=== PATIENT | female | born 1960 | race Caucasian/White ===

== ENCOUNTER 2019-04-01 13:12 | Outpatient (CLI) | payer OTHER, SELFPAY ==
--- NOTE | ~2019-04-01 | CT_ITS ---
EXAMINATION: CT thoracic spine wo con EXAM DATE: 04/01/2019 14:55 INDICATION: Left-sided upper back pain. TECHNIQUE: Spiral CT thoracic spine wo con was performed without contrast. Axial, coronal and sagit adrianna images were reviewed. The dose-length product (DLP) for this examination was 437.35 mGy-cm. The exposure was tailored according to patient size (auto mA exposure control), and iterative reconstruc tion (ASIR) was used as additional dose reduction technique. There is no prior study for comparison. FINDINGS: Mild mid and lower thoracic disc disease. The vertebral body heights are maintained. The ve rtebral bodies are aligned in the AP dimension. No evidence of thoracic central canal or significant neural foraminal stenosis. There are no acute fractures identified. There are no bony erosions identi fied. Mild thoracic facet arthropathy. Paraspinal soft tissue is unremarkable. Evaluation of portions of the lungs demonstrates nonconfluent left lower lobe airspace in tree-in-bud distribution disease consistent with developing pneumonia. IMPRESSION: 1. Probable developing left basilar pneumonia. 2. Mild thoracic spondylosis. I left a message for ZAC Murray NP at 04/04/2019 09:14 MECHANICAL DESIGN ENGINE[employer] . I provided my direct number for call back to discuss findings in this case. Reviewed, dictated and finalized at location B. ANICAL DESIGN ENGINE[employer] IMPRESSION: 1. Probable developing left basilar pneumonia. 2. Mild thoracic spondylosis. I left a message for ZAC Murray NP at 04/04/2019 09:14 MECHANICAL DESIGN ENGINE[employer] . I prov ided my direct number for call back to discuss findings in this case.
== END 2019-04-01 13:13 | disposition home or self-care (01) ==
PROVIDERS: PCP Internal Medicine; Visit Provider Nurse Practitioner
DX: M54.6 Pain in thoracic spine (principal); M47.814 Spondylosis without myelopathy or radiculopathy, thoracic region
CPT/HCPCS: 72128

== ENCOUNTER 2019-12-21 12:33 | Outpatient (CLI) | payer OTHER, SELFPAY ==
--- NOTE | ~2019-12-21 | MM_ITS ---
EXAMINATION: MM screening [facility] BI w sandi HISTORY: Screening mammogram, history of left breast cancer TECHNIQUE: Craniocaudal and mediolateral oblique 3-D tomosynthesis images were obtained and synthetic 2-D images were generated. CAD analysis was submitted and interpreted. COMPARISON: 07/26/2018, 06/30/2017, 06/23/2016, 06/20/2015 BREAST PARENCHYMAL COMPOSITION: The breasts are heterogeneously dense, which may obscure small masses . FINDINGS: There are stable lumpectomy changes in the lower outer quadrant of the left breast. There i s no evidence of suspicious mass, calcification, or architectural distortion to suggest malignancy in either breast. There has been no suspicious interval change. IMPRESSION: 1. No mammographic evidence of malignancy. 2. Recommend routine screening mammography in one year. BI-RADS Category 2: Benign finding(s). Reviewed, dictated and finalized at location A.
== END 2019-12-21 12:34 | disposition home or self-care (01) ==
LOC: ANHIMG 12:35
PROVIDERS: PCP Internal Medicine; Visit Provider Internal Medicine Medical Oncology
DX: Z12.31 Encounter for screening mammogram for malignant neoplasm of breast (principal)
CPT/HCPCS: 77063; 77067

== ENCOUNTER → 2020-12-24 09:25 | Outpatient (CLI) | payer OTHER, SELFPAY ==
--- NOTE | ~2020-12-24 | MMUS_ITS ---
EXAMINATION: MM diagnostic [facility] BI w sandi, US breast LT limited HISTORY: Palpable left breast abnormality. History of left breast cancer. TECHNIQUE: Additional 3-D tomosynthesis images of the breasts were performed and synthetic 2-D images were generated. CAD analysis was submitted and interpreted. High resolution Limited left breast ultr asound was performed. COMPARISON: Comparison to multiple prior studies sequentially, with oldest reviewed study dated 06/16. BREAST PARENCHYMAL COMPOSITION: The breasts are heterogenously dense, which may obscure small masses. FINDINGS: MAMMOGRAPHIC FINDINGS: The right breast is stable without evidence for malignancy. There are stable architectural distortion in the lower outer quadrant of the left breast with surgical clips. There is a new focal mass in the upper aspect of the left breast overlying the pectoralis muscle corresponding to the palpable findin g. This mass measures 7 mm by mammography. ULTRASOUND: Limited left breast ultrasound: In the axilla in the area palpable concern there is an oval hypoechoi c mass with heterogeneous internal echotexture measuring 8 x 9 x 6 mm. There is posterior acoustic en hancement. No internal vascularity. IMPRESSION: 1. New left breast mass in the axilla corresponding to the mammographic finding measuring 9 mm maximu m dimension. 2. Recommend ultrasound-guided biopsy of breast cancer. This mass has a atypical appearance for lymph node. BI-RADS category 4, suspicious findings. Reviewed, dictated and finalized at location A. IMPRESSION: 1. New left breast mass in the axilla corresponding to the mammographic finding measuring 9 mm maximum dimension. 2. Recommend ultrasound-guided biopsy of breast cancer. This mass has a atypica l appearance for lymph node. BI-RADS category 4, suspicious findings.
== END ==
PROVIDERS: PCP Internal Medicine; Visit Provider Internal Medicine Medical Oncology
DX: C50.512 Malignant neoplasm of lower-outer quadrant of left female breast (principal); Z17.1 Estrogen receptor negative status [ER-]; R92.8 Other abnormal and inconclusive findings on diagnostic imaging of breast
CPT/HCPCS: 76642; 77062; 77066; G0279

== ENCOUNTER 2021-01-01 10:27 | Outpatient (CLI) | payer OTHER, SELFPAY ==
--- NOTE | ~2021-01-01 | US_ITS ---
EXAMINATION: US GUIDED NEEDLE BIOPSY DATE: 01/01/2021 12:23 COLLAR FOLDER OPERATOR INDICATION: New axillary 7 mm mass TECHNIQUE AND FINDINGS: The risks and potential benefits of the procedure were discussed with the patient, and written inform ed consent was obtained. Timeout procedure was performed. After sterile preparation of the left axill a, 1% lidocaine was utilized for local anesthesia. A 18-gauge super core biopsy needle was advanced to the edge of the region of interest from a lateral approach utilizing sonographic guidance. A total of three fine-needle tissue samples were obtained through the lesion. Hemostasis was achieved. A sterile bandage was applied. The patient tolerated procedure well and there was no evidence of immediate complication. The patien t was given verbal instructions prior to departing from the department. The tissue samples were submi tted to surgical pathology for histologic analysis. IMPRESSION: 1. Ultrasound guided biopsy of left axillary mass 2. If diagnostic tissue is not obtained and definitive pathological diagnosis is not possible from th e submitted tissue, consider surgical biopsy, as the lesion is visible at the skin surface and easily palpated. Reviewed, dictated and finalized at Location A. Reviewed, dictated and finalized at location A. AR FOLDER OPERATOR IMPRESSION: 1. Ultrasound guided biopsy of left axillary mass 2. If diagnostic tissue is not obtained and definitive pathological diagnosis i s not possible from the submitted tissue, consider surgical biopsy, as the lesi on is visible at the skin surface and easily palpated.
== END 2021-01-01 10:28 | disposition home or self-care (01) ==
LOC: ANHIMG 10:32
PROVIDERS: PCP Internal Medicine; Visit Provider Internal Medicine Medical Oncology
DX: C50.512 Malignant neoplasm of lower-outer quadrant of left female breast (principal); Z17.1 Estrogen receptor negative status [ER-]; R22.32 Localized swelling, mass and lump, left upper limb; L72.0 Epidermal cyst
CPT/HCPCS: 19083; 88304; 88305

== ENCOUNTER 2022-08-27 07:16 | Outpatient (CLI) | payer OTHER, SELFPAY ==
--- NOTE | ~2022-08-27 | MM_ITS ---
EXAMINATION: MM screening [facility] w sandi HISTORY: Screening mammogram, history of left breast cancer TECHNIQUE: Craniocaudal and mediolateral oblique 3-D tomosynthesis images were obtained and synthetic 2-D images were generated. CAD analysis was submitted and interpreted. COMPARISON: 12/24/2020, 12/21/2019, 07/26/2018, 06/30/2017 BREAST PARENCHYMAL COMPOSITION: The breasts are heterogeneously dense, which may obscure small masses . FINDINGS: Lumpectomy changes are noted in the left breast. No suspicious mass, calcification, or arch itectural distortion are identified in either breast to suggest malignancy. There has been no suspici ous interval change. IMPRESSION: 1. No mammographic evidence of malignancy. 2. Recommend routine screening mammography in one year. BI-RADS Category 2: Benign finding(s). Reviewed, dictated and finalized at location A.
== END 2022-08-27 07:17 | disposition home or self-care (01) ==
LOC: ANHIMG 07:19
PROVIDERS: PCP Internal Medicine; Visit Provider Internal Medicine
DX: Z12.31 Encounter for screening mammogram for malignant neoplasm of breast (principal)
CPT/HCPCS: 77063; 77067

== ENCOUNTER 2023-12-24 15:49 | Outpatient (CLI) | payer OTHER, SELFPAY ==
--- NOTE | ~2023-12-24 | MM_ITS ---
EXAMINATION: MM screening [facility] w sandi HISTORY: Screening mammogram TECHNIQUE: Craniocaudal and mediolateral oblique 3-D tomosynthesis images were obtained and synthetic 2-D images were generated. CAD analysis was submitted and interpreted. COMPARISON: 08/27/2022, 12/24/2020, 12/21/2019 BREAST PARENCHYMAL COMPOSITION:Dense: The breasts are heterogeneously dense, which may obscure small masses. FINDINGS: Stable postoperative distortion at the outer, posterior left breast. Questionable small sub tle low-density developing mass at the outer right subareolar region. No suspicious microcalcificatio n arrest. IMPRESSION: Possible small developing low-density right outer subareolar breast mass. Spot compression views and possible ultrasound are recommended for further evaluation. BI-RADS Category 0: Incomplete: Needs additional imaging evaluation. Reviewed, dictated and finalized at [facility]. IMPRESSION: Possible small developing low-density right outer subareolar breast mass. Spot compression views and possible ultrasound are recommended for further evaluati on. BI-RADS Category 0: Incomplete: Needs additional imaging evaluation.
== END 2023-12-24 15:50 | disposition home or self-care (01) ==
LOC: ANHIMG 15:50
PROVIDERS: PCP Internal Medicine; Visit Provider Internal Medicine
DX: Z12.31 Encounter for screening mammogram for malignant neoplasm of breast (principal)
CPT/HCPCS: 77063; 77067

== ENCOUNTER 2024-08-05 09:28 | Outpatient (CLI) | payer OTHER, SELFPAY ==
--- OUTSIDE RECORDS SUMMARY | 2024-08-05 09:35 | XMS_ITS | Clinical Summary ---
Author Organization [facility] Address [address] [place] [address] Phone Care Team Providers Care Striker Off Name Role Phone YolandaEmil guzmán Randy Primary Care Provider Allergies No known active allergies Medications Milk Thistle 175 mg Tablet Take by mouth. A ctive OTHER Nutrafol hair supplement Active Active Problems Problem Noted Date Diagnosed Date History of external beam radiation therapy 01/27 Carcinoma of breast upper outer quadrant, left 0 07/15/2017 Estrogen receptor negative 07/15/2017 Abnormal mammogram 07/15/2017 History of antineoplastic chemotherapy 8 Encounters Date Type Department Care Team Description 07/13/2024 External Device Data ST[facility] ABSTRACTION Provider, Abstract 07/12/2024 External Device Data [facility] ABSTRACTION Provider, Abstract from Last 3 Months Family History Medical History Relation Name Comments Healthy Brother Cancer Father Hypertension Father Healthy Mother Healthy Sister 1 Healthy Sister 2 Relation Name Status Comments Brother Alive Father Mother Alive Sister 1 Alive Sister 2 Alive Social History Tobacco Use Types Packs/Day Years Used Date Smoking Tobacco: Former Cigarettes Smokeless Tobacco: Never Tobacco Cessation:Counseling Given: Not Answered Alcohol Use Standard Drinks/Week Comments Yes 0 (1 standard drink = 0.6 oz pur e alcohol) Feeling Safe Answer Date Recorded Do you worry about feeling s afe and happy with the people in your life? No 01/26/2024 Comments No Sex and Gender Information Value Date Recorded Sex Assigned at Not on file Legal Sex Female 4:27 AM ACCOUNT SUPPORT REP Gender Identity Not on file Sexual Orientation Not on file Last Filed Vital Signs Vital Sign Reading Time Taken Comments Blood Pressure 136/88 01/26/2024 11:09 AM ACCOUNT SUPPORT REP Pulse 67 07/30/2018 9:38 AM CDT Temperature 36.8 C (98.2 F) 07/30/2018 9:38 AM CDT Respiratory Rate - - Oxygen Saturation 97% 07/30/2018 9:38 AM CDT Inhaled Oxygen Concentration - - Weight 71.2 kg (157 lb) 01/26/2024 11:09 AM ACCOUNT SUPPORT REP Height 162.6 cm (5' 4) 01/26/2024 11:09 AM ACCOUNT SUPPORT REP Body Mass Index 26.95 01/26/2024 11:09 AM ACCOUNT SUPPORT REP Plan of Treatment Upcoming Encounters Date Type Department Care Team (Late st Contact Info) Description 12/26/2024 11:00 AM ACCOUNT SUPPORT REP Appointment [facility] [address] [place] [address] Chuyita Messer, SAMAN [address] [place] [address] 12/26/2024 11:45 AM ACCOUNT SUPPORT REP Office Visit [facility] [address] [place] [address] Chuyita Messer, SAMAN [address] [facility] [address] [place] [address] Health Maintenance Due Date Last Done Comments Pre-Diabetes and Diabetes Screening 1961 DTAP/TDAP/TD VACCINES (1 - Tdap) 1980 HPV/Cotest (21-29) 1982 CERVICAL CANCER SCREENING 1991 HPV/Cotest (30-65) 1991 PAP SMEAR 1991 COLORECTAL SCREENING 2006 Colorectal Cancer Screening 2006 FIT-DNA Q 3 years 2006 FIT/FOBT Q 1 year 2006 Flex Sig/CT Colonography Q 5 years 2006 ZOSTER VACCINE (2 of 2) 12/28/2020 11/02/2020 INFLUENZA VACCINE (#1) 2023 BREAST CANCER SCREENING 12/23/2024 12/24/19 24, 07/26/2018, 06/30/2017, Additional history exists RSV VACCINE (60+ or ) (1 - 1-dose 75+ series) 2036 Procedures Procedure Name Priority Date/Time Associated Diagnosis Comments MAMMO SCREEN BILAT W OR WO CAD Routine 12/24/2023 2:07 PM CDT from Last 3 Months or Most Recently Relevant to Health Maintenance Results * MAMMO SCREEN BILAT W OR WO CAD (12/24/2023 2:07 PM CDT) Anatomical Region Laterality Modality Breast Bilateral Mammography us Abstract Provider MAMMO ORDERABLES Final Result from Last 3 Months or Most Recently Relevant to Health Maintenance Insurance [employer] [id number] Care Teams Striker Off Relationship Specialty Start Date End Date Emil Lewis DO [address] [address] PCP - General Internal Medicine 07/15/17
--- OUTSIDE RECORDS SUMMARY | 2024-08-05 09:35 | XMS_ITS | Referral Summary ---
Author Organization [facility] Address [address] [place] [address] Care Team Providers Care Commercial Collector Name Role Phone Romaine Cary MD Unavailable [phone] Queenie Oshea DO Unavailable [phone] Emil Lewis DO Primary Care Provider [phone] Allergies No known active allergies Medications flaxseed oil oil by [facility]Non-D rug; Combo Route) route. Active milk thistle 175 mg tablet Take by mouth. Active omega-3 fatty acids-fish oil 300-1,000 mg capsule Take by mouth. Active Active Problems Problem Noted Date Diagnosed Date Malignant neoplasm of lower- outer quadrant of left breast of female, estrogen receptor negative 12/14/2017 Immunizations Immunization Administration Dates Next Due Pneumococcal Conjugate PCV 13 11/02/2020 ZOSTER Recombinant 11/02/2020 Social History Tobacco Use Types Packs/Day Years Used Date Smoking Tobacco: Never Smokeless Tobacco: Never Personal Safety Answer Date Recorded Getting School Help Needed Not on file 05/08 Comments Unknown Sex and Gender Information Value Date Recorded Sex Assigned at Not on file Legal Sex Female 8:01 AM REPAIR ELECTRIC MOTOR ASSEMBLER Gender Identity Not on file Sexual Orientation Not on file Last Filed Vital Signs Vital Sign Reading Time Taken Comments Blood Pressure 136/87 01/21/2021 8:51 AM REPAIR ELECTRIC MOTOR ASSEMBLER Pulse 65 01/21/2021 8:51 AM REPAIR ELECTRIC MOTOR ASSEMBLER Temperature 36.4 C (97.5 F) 01/21/2021 8:51 AM REPAIR ELECTRIC MOTOR ASSEMBLER Respiratory Rate 16 01/21/2021 8:51 AM REPAIR ELECTRIC MOTOR ASSEMBLER Oxygen Saturation 97% 01/21/2021 8:51 AM REPAIR ELECTRIC MOTOR ASSEMBLER Inhaled Oxygen Concentration - - Weight 71.1 kg (156 lb 12.8 oz) 01/21/2021 8:51 AM REPAIR ELECTRIC MOTOR ASSEMBLER Height 162.6 cm (5' 4) 01/21/2021 8:51 AM REPAIR ELECTRIC MOTOR ASSEMBLER Body Mass Index 26.91 01/21/2021 8:51 AM REPAIR ELECTRIC MOTOR ASSEMBLER Plan of Treatment Not on file Insurance [employer] Care Teams Commercial Collector Relationship Specialty Start Date End Date Emil Lewis DO PCP - General Internal Medicine 01/21/21 Romaine Cary MD Medical Oncologist/Laborer Airport Maintenance Hematology and Oncology 12/28/18 Queenie Oshea DO General Surgery 12/24/20
--- OUTSIDE RECORDS SUMMARY | 2024-08-05 09:35 | XMS_ITS | Continuity of Care Document ---
Author Organization [facility] Address [address] [place] [address] Phone Care Team Providers Care Road Freight Firer Name Role Phone Conversion MD, Doctor Unavailable Unavailabl e Allergies, Adverse Reactions, Alerts Substance Reaction Status Criticality No Known Drug Allergies Other Active No I nformation Medications Medication Instructions Dosage Effective Dates (start - stop) Status Comments ENTEX PSE 600-120MG TABS 1 BID - Active ZITHROMAX TAB 250 MG Z-MARIJA 250 1 DIRECTE - No Longer Active Advance Directives Directive Yes / No Effective Date File Name No Information Encounters Encounter Description Practice Location Reason(s) For Visit Diagnoses Date Provider Providers Copied on Encounter [facility], [address], [place], [place], [address], tel:[phone] Conversion Department No Information 1 Conversion Doctor. [address] [place] [address], [address], . [facility], [address], [place], [place], [address], tel:[phone] [facility] LIPOMA NOS Sep-2 4200 8 Priyanka Rivera. [address], [facility] [address], [place], [place], [address], [place]. tel:[phone] [facility], [address], [place], [place], [address], [place] tel:[phone] [facility] VIRAL WARTS NOSSEBACEOUS CYST Apr-1 6-200 8 Priyanka Rivera. [address], [facility] [address], [place], [place], [address], [place]. tel:[phone] [facility], [address], [place], [place], [address], tel:[phone] [facility] ACUTE BRONCHITIS 7 Yony Sanchez. [address], [facility] [address], [place], [place], [address], . tel:[phone] [facility], [address], [place], [place], [address], tel:[phone] [facility] SCRN-ISCHEMIC HEART DISROUTINE MEDICAL EXAM 7 Priyanka Rivera. [address], [address], [place], [place], [address], [place]. tel:[phone] [facility], [address], [place], [place], [address], tel:[phone] [facility] ACUTE SINUSITIS NOSAC LARYNGITIS W/O OBSTACUTE PHARYNGITIS 0 3 Meet Felton. [address], [facility] [address], [place], [place], [address]. tel:[phone] [facility], [address], [place], [place], [address], tel:[phone] [facility] ACUTE URI NOS 2 Conversion Doctor. [address] [place] [address], [address], . Family History Family Member Type Diagnosis Age At Onset No Information Payers Payer name Insurance type Covered republican ID Authoriza tion(s) No Information Social History Type Description Quantity Date Captured Comments Sex Female Smoking Status No Information Chief Complaint And Reason For Visit No Information Reason For Referral Reason For Referral No Information History Of Present Illness Encounter Date Complaint History Of Prese nt Illness No Information Functional Status Date Functional Assessmen t No Information Instructions Date Instruction Additional Infor mation No Information Assessments Type Assessment Date No Information Patient Care Teams Name Effective Dates (start - stop) Status Members No Information
--- OUTSIDE RECORDS SUMMARY | 2024-08-05 09:35 | XMS_ITS | Clinical Summary ---
Author Organization [facility] Address [address] [place] [address] Care Team Providers Care Mortgage Assistant Name Role Phone Romaine Cary MD Unavailable [phone] Queenie Oshea DO Unavailable [phone] Emil Lewis DO Primary Care Provider [phone] Allergies No known active allergies Medications flaxseed oil oil by [facility].(Non-D rug; Combo Route) route. Active milk thistle [...] on file Legal Sex Female 8:01 AM MANAGEMENT PROFESSIONAL Gender Identity Not on file Sexual Orientation Not on file Obstetrics History Last Filed Vital Signs Vital Sign Reading Time Taken Comments Blood Pressure 136/87 01/21/2021 8:51 AM MANAGEMENT PROFESSIONAL Pulse 65 01/21/2021 8:51 AM MANAGEMENT PROFESSIONAL Temperature 36.4 C (97.5 F) 01/21/2021 8:51 AM MANAGEMENT PROFESSIONAL Respiratory Rate 16 01/21/2021 8:51 AM MANAGEMENT PROFESSIONAL Oxygen Saturation 97% 01/21/2021 8:51 AM MANAGEMENT PROFESSIONAL Inhaled Oxygen Concentration - - Weight 71.1 kg (156 lb 12.8 oz) 01/21/2021 8:51 AM MANAGEMENT PROFESSIONAL Height 162.6 cm (5' 4) 01/21/2021 8:51 AM MANAGEMENT PROFESSIONAL Body Mass Index 26.91 01/21/2021 8:51 AM MANAGEMENT PROFESSIONAL Plan of Treatment Not on file Insurance [employer] Care Teams Mortgage Assistant Relationship Specialty Start Date End Date Emil Lewis DO PCP - General Internal Medicine 01/21/21 Romaine Cary MD Medical Oncologist/Registered Dietitian Hematology and Oncology 12/28/18 Queenie Oshea DO General Surgery 12/24/20
--- OUTSIDE RECORDS SUMMARY | 2024-08-05 09:35 | XMS_ITS | Encounter Summary ---
Author Organization [facility] Address [address] [place] [address] Care Team Providers Care Cane Weigher Helper Name Role Phone VirginiaEmil son Primary Care Provider Encounter Details Date Type Department Care Team (Late st Contact Info) Description 12/27/2007 Outpatient Historical [facility] Sandro Gusman Social History Tobacco Use Types Packs/Day Years Used Date Smoking Tobacco: Never Assessed Comments Unknown Sex and Gender Information Value Date Recorded Sex Assigned at Not on file Legal Sex Female 4:27 AM AIRCRAFT TIME CLERK Gender Identity Not on file Sexual Orientation Not on file documented as of this encounter Plan of Treatment Upcoming Encounters Date Type Department Care Team (Late st Contact Info) Description 12/26/2024 11:00 AM AIRCRAFT TIME CLERK Appointment [facility] [address] [place] [address] Chuyita Messer, SAMAN [address] [facility] [address] [place] [address] 12/26/2024 11:45 AM AIRCRAFT TIME CLERK Office [facility] [address] [facility] [address] [place] [address] Chuyita Messer, SAMAN [address] [facility] [address] [place] [address] documented as of this encounter Procedures Procedure Name Priority Date/Time Associated Diagnosis Comments PATHOLOGY Routine 01/24/2008 9:11 AM AIRCRAFT TIME CLERK HEMOGLOBIN AND HEMATOCRIT Stat 01/24/2008 6:35 AM AIRCRAFT TIME CLERK POC , URINE Routine 01/24/2008 6:30 AM AIRCRAFT TIME CLERK documented in this encounter Results * PATHOLOGY (01/24/2008 9:11 AM AIRCRAFT TIME CLERK) FINAL REPORT [facility] [address] [facility] [place], [place] [address] Patient: JUANITO RAM : 1960 Procedure Date: 01/24/2008 Accession Date: 01/24/2008 Case No: [id number] Ordering Dr: SANDRO GUSMAN Case types AW, BW, FW, NW and SH are performed by [facility] [place], [place] SURGICAL PATHOLOGY & NON-GYNECOLOGIC CYTOPATHOLOGY REPORT DIAGNOSIS SOFT TISSUE, RIGHT BACK, SUBMUSCULAR REGION, EXCISION: - LIPOMA, CONSISTENT WITH. SOFT TISSUE, RIGHT ABDOMEN, EXCISION: - LIPOMA, CONSISTENT WITH. Specimen Description: (1) Lipoma submuscular right back; (2) lipoma of right abdomen. Operative Procedure: Excision tumor right back and right abdomen. Patient Information/Histor y/Diagnosis: Tumor right back and right abdomen. Gross: The specimens are received in two containers, each labeled Juanito Ram. Received in the first container and labeled lipoma submuscular right back are two pieces of erythematous adipose tissue which measure 4.8 x 3.5 x 2.0 cm and 7.0 x 5.5 x 2.5 cm. The tissues are inked blue on their surgical margins and are sectioned to reveal yellow, smooth cut surfaces. Patternmaker Sample sections are submitted in cassettes as follows: A1-larger tissue; A2-smaller tissue. Received in the second container and labeled lipoma of right abdomen is a 6.8 x 6.0 x 2.0-cm piece of adipose tissue. The specimen is inked blue on its outer surface and is sectioned to reveal yellow, smooth cut surfaces. Patternmaker Sample sections are submitted in cassette B1. [facility] 01.24.2008 12:30 pm Microscopic: The sections are labeled [id number], Juanito Ram. The excised tissue from the right back displays mature fibroadipose tissue with some adjacent skeletal muscle. The excised tissue from the right abdomen displays mature fibroadipose tissue. BBK/DI 01.26.2008 11:23 am Staging Form: No. ELECTRONIC SIGNATURE FOR LILIA HOLLOWAY M.D.- 01/26/08 01:59 pm INTERFACE SYSTEM 01/24/2008 9:11 AM AIRCRAFT TIME CLERK Result [facility] Sandro Gusman PATHOLOGY/CYTOLOGY ORDERABLES F inal Result Performing Organization Address [facility] de Phone Number INTERFACE SYSTEM Refer to clinic/hospital department * HEMOGLOBIN AND HEMATOCRIT (01/24/2008 6:35 AM AIRCRAFT TIME CLERK) Pathologist [facility] HEMOGLOBIN 14.0 11.8 - 14.8 g/dL [facility] HEMATOCRIT 40.9 35.5 - 44.0 % [facility] Blood specimen (specimen) 01/24/2008 6:35 AM AIRCRAFT TIME CLERK 01/24/2008 6:37 AM AIRCRAFT TIME CLERK Narrative INTERFACE SYSTEM - 01/24/2008 6:48 AM AIRCRAFT TIME CLERK rm 27 Sandro Gusman HEMATOLOGY ORDERABLES Final Res ult Performing Organization Address [facility] Phone Number INTERFACE SYSTEM Refer to clinic/hospital department [facility] CLIA# [id number] [address] [place] [address] * POC , URINE (01/24/2008 6:30 AM AIRCRAFT TIME CLERK) , URINE POC Negative Negative [facility] Urine specimen (specimen) 01/24/2008 6:30 AM AIRCRAFT TIME CLERK 01/24/2008 6:30 AM AIRCRAFT TIME CLERK Sandro Gusman POINT OF CARE TESTING Final Res ult Performing Organization Address [facility] de Phone Number INTERFACE SYSTEM Refer to clinic/hospital department [facility] CLIA# [id number] [address] [place] [address] documented in this encounter Visit Diagnoses Not on filedocumented in this encounter Care Teams Cane Weigher Helper Relationship Specialty Start Date End Date Emil Lewis DO [address] [address] PCP - General Internal Medicine 07/15/17 documented as of this encounter
--- OUTSIDE RECORDS SUMMARY | 2024-08-05 09:35 | XMS_ITS | Clinical Summary ---
Author Organization [facility] Address [address] [place] [address] Care Team Providers Care Stem Cleaning Machine Feeder Name Role Phone Emil Lewis DO Primary Care Provider Source Comments [facility],non-owned Affiliates and Associated Physician Practices is amultiple site organization consisting of ambulatory clinics and hospital sitesin [place], [place], [place] and [place]. This disclosure is being madepursuant to the Care Everywhere program and may not contain all information available regarding this patient. Last updated 17.[facility] [employer] Social History Tobacco Use Types Packs/Day Years Used Date Smoking Tobacco: Never Assessed Comments Unknown Sex and Gender Information Value Date Recorded Sex Assigned at Not on file Legal Sex Female 6:21 AM CHICKEN CUTTER Gender Identity Not on file Sexual Orientation Not on file Last Filed Vital Signs Vital Sign Reading Time Taken Comments Blood Pressure - - Pulse - - Temperature - - Respiratory Rate - - Oxygen Saturation - - Inhaled Oxygen Concentration - - Weight 70.3 kg (155 lb) 07/21/2017 7:46 AM CDT Height 162.6 cm (5' 4) 07/21/2017 7:46 AM CDT Body Mass Index 26.61 07/21/2017 7:46 AM CDT Plan of Treatment Health Maintenance Due Date Last Done Comments COLOGUARD (AGES 45-75) - COL ON CA SCREENING 1960 COLON MONITORING 1960 COLONOSCOPY - COLON CA SCREENING 1960 CT COLONOGRAPHY - COLON CA SCREENING 1960 Colorectal Cancer Screening 1960 FIT - COLON CA SCREENING 1960 FLEX SIG - COLON CA SCREENING 1960 LIPID TESTING 1960 MAMMOGRAM 1960 HIV SCREENING 1976 HEPATITIS C SCREENING 03/28/1979 DTAP/TDAP/TD VACCINES (1 - Tdap) 1980 PNEUMOCOCCAL VACCINE 50+ (1 of 1 - PCV) 2011 ZOSTER VACCINE (1 of 2) 2011 COVID-19 VACCINE (1 - 2023-2 5 season) 2023 DEPRESSION SCREENING 02/24/2024 INFLUENZA VACCINE (Season Ended) 2024 Respiratory Syncytial Virus (RSV) Vaccine Pt: or over 60 yrs (1 - 1-dose 75+ series) 2036 HEPATITIS B VACCINE Aged Out No longe r eligible based on patient's age to complete this topic HIB VACCINE Aged Out No longer eligi ble based on patient's age to complete this topic HPV VACCINE Aged Out No longer eligi ble based on patient's age to complete this topic MENINGOCOCCAL (Group B) VACC INE SHARED DECISION-MAKING Aged Out No longer eligibl e based on patient's age to complete this topic MENINGOCOCCAL GROUPS A/C/Y/W VACCINE Aged Out No longer eligible b ased on patient's age to complete this topic [place] [address] [place] [address] [address] [place] [address] [facility] Care Teams Stem Cleaning Machine Feeder Relationship Specialty Start Date End Date Emil Lewis DO PCP - General 01/03/21
[2024-08-05 12:19] LABS: Basophils Absolute Auto 0.1 K/mm3 (0.0-0.1); Basophils Percent Auto 1.2 % (0.2-1.2); Eosinophils Absolute Auto 0.2 K/mm3 (0-0.3); Eosinophils Percent Auto 4.2 % (0-4.4); Hematocrit 44.1 % (37.0-47.0); Hemoglobin 14.8 g/dL (12.0-15.0); Immature Granulocyte Absolute 0.01 K/mm3 (0.00-0.031); Immature Granulocyte Percent A 0.2 % (0-0.5); Lymphocytes Absolute Auto 1.68 K/mm3 (0.9-3.2); Lymphocytes Percent Auto 41.1 % (18.3-44.2); Mean Corpuscular HGB Conc 33.6 g/dl (32-36); Mean Corpuscular Hemoglobin 31.8 pg (26-34); Mean Corpuscular Volume 94.6 fl (80-100); Mean Platelet Volume 11.4 fl (7.4-10.4); Monocytes Absolute Auto 0.5 K/mm3 (0.1-0.6); Monocytes Percent Auto 11.2 % (2.6-8.5); Neutrophils Absolute Auto 1.7 K/mm3 (1.3-6.7); Neutrophils Percent Auto 42.1 % (45.5-73.1); Platelet Count Result 199 k/mm3 (150-375); Red Blood Count 4.66 M/mm3 (4.2-5.4); Red Cell Distribution Width 11.4 % (11.5-14.5); White Blood Count 4.1 K/mm3 (4.5-10.0)
[2024-08-05 12:38] LABS: Alanine Aminotransferase 36 U/L (6-35); Albumin Level 4.5 g/dL (3.5-5.1); Alkaline Phosphatase 55 U/L (38-126); Anion Gap 8 mmol/L (4-12); Aspartate Amino Transferase 56 U/L (14-36); Blood Urea Nitrogen 13 mg/dL (7-17); Calcium 9.7 mg/dL (8.4-10.2); Carbon Dioxide 27 mmol/L (22-30); Chloride 104 mmol/L (98-107); Cholesterol 292 mg/dL (0-200); Estimated Glomerular Filt Rate > 60; Glucose 94 mg/dL (65-110); HDL Direct 87 mg/dL; Potassium 4.1 mmol/L (3.4-5.0); Sodium 139 mmol/L (137-145); Total Protein 7.5 g/dL (6.3-8.2); Triglycerides 152 mg/dL (<150)
[2024-08-05 12:49] LABS: LDL Cholesterol Direct 147 mg/dL
== END 2024-08-05 09:29 | disposition home or self-care (01) ==
LOC: ANHGOSHLAB 09:29
PROVIDERS: PCP Internal Medicine; Visit Provider Nurse Practitioner
DX: Z13.29 Encounter for screening for other suspected endocrine disorder (principal); Z13.220 Encounter for screening for lipoid disorders; R53.83 Other fatigue
CPT/HCPCS: 36415; 80053; 80061; 84443; 85025

== ENCOUNTER 2024-10-07 13:16 | Outpatient (CLI) | payer OTHER, SELFPAY ==
--- NOTE | ~2024-10-07 | MM_ITS ---
EXAMINATION: MM diagnostic victor hugo BI w sandi HISTORY: Left breast cancer status post lumpectomy TECHNIQUE: Additional 3-D tomosynthesis images of the breasts were performed and synthetic 2-D images were generated. CAD analysis was submitted and interpreted. COMPARISON: Comparison to multiple prior studies sequentially, with oldest reviewed study dated 09/2017. BREAST PARENCHYMAL COMPOSITION: Dense: The breasts are heterogeneously dense, which may obscure small masses FINDINGS: Stable postoperative change/architectural distortion lower outer quadrant of the left breas t. The breasts are stable. No new masses, calcifications or architectural distortion in either breast . IMPRESSION: 1. No evidence for malignancy in either breast. 2. Routine yearly screening mammogram and regular clinical breast examination are recommended. BI-RADS Category 2: Benign finding(s). Reviewed, dictated and finalized at location A. IMPRESSION: 1. No evidence for malignancy in either breast. 2. Routine yearly screening mammogram and regular clinical breast examination a re recommended. BI-RADS Category 2: Benign finding(s).
--- OUTSIDE RECORDS SUMMARY | 2024-10-07 13:20 | XMS_ITS | Clinical Summary ---
Author Organization [facility] Address [address] [place] [address] Care Team Providers Care Sales Program Manager Name Role Phone Romaine Cary MD Unavailable [phone] Queenie Oshea DO Unavailable [phone] Emil Lewis DO Primary Care Provider [phone] Allergies No known active allergies Medications flaxseed oil oil by [facility].(Non-D rug; Combo Route) route. Active milk thistle [...] on file Legal Sex Female 8:[address] Gender Identity Not on file Sexual Orientation Not on file Obstetrics History Last Filed Vital Signs Vital Sign Reading Time Taken Comments Blood Pressure 136/87 01/21/2021 8:[address] Pulse 65 01/21/2021 8:[address] Temperature 36.4 C (97.5 F) 01/21/2021 8:[address] Respiratory Rate 16 01/21/2021 8:[address] Oxygen Saturation 97% 01/21/2021 8:[address] Inhaled Oxygen Concentration - - Weight 71.1 kg (156 lb 12.8 oz) 01/21/2021 8:[address] Height 162.6 cm (5' 4) 01/21/2021 8:[address]IL[address] Body Mass Index 26.91 01/21/2021 8:[address] Plan of Treatment Not on file Insurance [employer] Care Teams Sales Program Manager Relationship Specialty Start Date End Date Emil Lewis DO PCP - General Internal Medicine 01/21/21 Romaine Cayr MD Medical Oncologist/Mortgage Clerk Hematology and Oncology 12/28/18 Queenie Oshea DO General Surgery 12/24/20
--- OUTSIDE RECORDS SUMMARY | 2024-10-07 13:20 | XMS_ITS | Encounter Summary ---
Author Organization [facility] Address [address] [place] [address] Care Team Providers Care Mixing Machine Attendant Name Role Phone VirginiaEmil son Primary Care Provider Encounter Details Date Type Department Care Team (Late st Contact Info) Description 12/27/2007 Outpatient Historical [facility] Sandro Gusman Social History Tobacco Use Types Packs/Day Years Used Date Smoking Tobacco: Never Assessed Comments Unknown Sex and Gender Information Value Date Recorded Sex Assigned at Not on file Legal Sex Female 4:27 AM MINIATURE SET CONSTRUCTOR Gender Identity Not on file Sexual Orientation Not on file documented as of this encounter Plan of Treatment Upcoming Encounters Date Type Department Care Team (Late st Contact Info) Description 12/26/2024 11:00 AM MINIATURE SET CONSTRUCTOR [facility] [address] [place] [address] Chuyita Messer, SAMAN [address] [facility] [address] [place] [address] 12/26/2024 11:45 AM MINIATURE SET CONSTRUCTOR [facility] [address] [facility] [address] [place] [address] Chuyita Messer, SAMAN [address] [facility] [address] [place] [address] documented as of this encounter Procedures Procedure Name Priority Date/Time Associated Diagnosis Comments PATHOLOGY Routine 01/24/2008 9:11 AM MINIATURE SET CONSTRUCTOR HEMOGLOBIN AND HEMATOCRIT Stat 01/24/2008 6:35 AM MINIATURE SET CONSTRUCTOR POC , URINE Routine 01/24/2008 6:30 AM MINIATURE SET CONSTRUCTOR documented in this encounter Results * PATHOLOGY (01/24/2008 9:11 AM MINIATURE SET CONSTRUCTOR) FINAL REPORT [facility] [place] [place] [address] [facility] [address] [place], [place] [address] Patient: JUANITO RAM : 1960 Procedure Date: 01/24/2008 Accession Date: 01/24/2008 Case No: [id number] Ordering Dr: SANDRO GUSMAN Case types AW, BW, FW, NW and SH are performed by [facility] [place], [place], [place] SURGICAL PATHOLOGY & NON-GYNECOLOGIC CYTOPATHOLOGY REPORT [...] sectioned to reveal yellow, smooth cut surfaces. Civil Celebrant sections are submitted in cassettes as follows: A1-larger tissue; A2-smaller tissue. Received in the second container and labeled lipoma of right abdomen is a 6.8 x 6.0 x 2.0-cm piece of adipose tissue. The specimen is inked blue on its outer surface and is sectioned to reveal yellow, smooth cut surfaces. Civil Celebrant sections are submitted in cassette B1. [facility] 01.24.2008 12:30 pm Microscopic: The sections are labeled [id number], Juanito Ram. The excised tissue from the right back displays mature fibroadipose tissue with some adjacent skeletal muscle. The excised tissue from the right abdomen displays mature fibroadipose tissue. BBK/DI 01.26.2008 11:23 am Staging Form: No. ELECTRONIC SIGNATURE FOR LILIA HOLLOWAY M.D.- 01/26/08 01:59 pm INTERFACE SYSTEM 01/24/2008 9:11 AM MINIATURE SET CONSTRUCTOR Result [facility] Sandro Gusman PATHOLOGY/CYTOLOGY ORDERABLES F inal Result Performing Organization Address [facility] de Phone Number INTERFACE SYSTEM Refer to clinic/hospital department * HEMOGLOBIN AND HEMATOCRIT (01/24/2008 6:35 AM MINIATURE SET CONSTRUCTOR) Pathologist [facility] HEMOGLOBIN 14.0 11.8 - 14.8 g/dL [facility] HEMATOCRIT 40.9 35.5 - 44.0 % [facility] Blood specimen (specimen) 01/24/2008 6:35 AM MINIATURE SET CONSTRUCTOR 01/24/2008 6:37 AM MINIATURE SET CONSTRUCTOR Narrative INTERFACE SYSTEM - 01/24/2008 6:48 AM MINIATURE SET CONSTRUCTOR rm 27 Sandro Gusman HEMATOLOGY ORDERABLES Final Res ult Performing Organization Address [facility] Phone Number INTERFACE SYSTEM Refer to clinic/hospital department [facility] CLIA# [id number] [address] [place] [address] * POC , URINE (01/24/2008 6:30 AM MINIATURE SET CONSTRUCTOR) , URINE POC Negative Negative [facility] Urine specimen (specimen) 01/24/2008 6:30 AM MINIATURE SET CONSTRUCTOR 01/24/2008 6:30 AM MINIATURE SET CONSTRUCTOR Sandro Gusman POINT OF CARE TESTING Final Res ult Performing Organization Address [facility] de Phone Number INTERFACE SYSTEM Refer to clinic/hospital department [facility] CLIA# [id number] [address] [place] [address] documented in this encounter Visit Diagnoses Not on filedocumented in this encounter Care Teams Mixing Machine Attendant Relationship Specialty Start Date End Date Emil Lewis DO [address] [address] PCP - General Internal Medicine 07/15/17 documented as of this encounter
--- OUTSIDE RECORDS SUMMARY | 2024-10-07 13:20 | XMS_ITS | Clinical Summary ---
Author Organization [facility] Address [address] [place] [address] Phone Care Team Providers Care Temperature Regulator Name Role Phone ManojEmil hollis Randy Primary Care Provider Allergies No known [...] Encounters Date Type Department Care Team Description 10/04/2024 External Device Data STL ABSTRACTION Provider, Abstract 09/28/2024 External Device Data STL ABSTRACTION Provider, Abstract 09/07/2024 External Device Data STL ABSTRACTION Provider, Abstract 09/07/2024 External Device Data STL ABSTRACTION Provider, Abstract 08/10/2024 External Device Data STL ABSTRACTION Provider, Abstract 07/13/2024 External Device Data STL ABSTRACTION Provider, [...] drink = 0.6 oz pur e alcohol) Comments No Sex and Gender Information Value Date Recorded Sex Assigned at Not on file Legal Sex Female 4:27 AM CHUCKER Gender Identity Not on file Sexual Orientation Not on file Last Filed Vital Signs Vital Sign Reading Time Taken Comments Blood Pressure 136/88 01/26/2024 11:09 AM CHUCKER Pulse 67 07/30/2018 9:38 AM CDT Temperature 36.8 C (98.2 F) 07/30/2018 9:38 AM CDT Respiratory Rate - - Oxygen Saturation 97% 07/30/2018 9:38 AM CDT Inhaled Oxygen Concentration - - Weight 71.2 kg (157 lb) 01/26/2024 11:09 AM CHUCKER Height 162.6 cm (5' 4) 01/26/2024 11:09 AM CHUCKER Body Mass Index 26.95 01/26/2024 11:09 AM CHUCKER Plan of Treatment Upcoming Encounters Date Type Department Care Team (Late st Contact Info) Description 12/26/2024 11:00 AM CHUCKER Appointment [facility] [address] [place] [address] Chuyita Messer, HYDRAULIC JACK OPERATOR [address] [facility] [address] [place] [address] 12/26/2024 11:45 AM CHUCKER Office Visit [facility] Breast Surgery [place] [address] [place] [address] Chuyita Messer, SAMAN [address] [place] [address] Health Maintenance Due Date Last Done Comments [...] of 2) 12/28/2020 11/02/2020 INFLUENZA VACCINE (#1) 2024 BREAST CANCER SCREENING 12/23/2024 12/24/19 24, 07/26/2018, [...] Most Recently Relevant to Health Maintenance Insurance [address] [address] Care Teams Temperature Regulator Relationship Specialty Start Date End Date Emil Lewis DO [address] [facility] [address] [place] [address] PCP - General Internal Medicine 07/15/17
--- OUTSIDE RECORDS SUMMARY | 2024-10-07 13:20 | XMS_ITS | Continuity of Care Document ---
Author Organization [facility] Address [address] [place] [address] Phone Care Team Providers Care Garment Sewing Machine Operator Name Role Phone Conversion MD, Doctor Unavailable [...] Diagnoses Date Provider Providers Copied on Encounter [facility], [address], [place], [place], [address], tel:[phone] Conversion Department No Information 1 Conversion Doctor. [address] [place] [address], [address], . [employer] [facility], [address], [place], [place], [address], tel:[phone] [place] LIPOMA NOS Sep-2 4200 8 Priyanka Rivera. [address], [facility] [address], [place], [place], [id number], [place]. tel:[phone] [employer], [address], [place], [place], [address], [place] tel:[phone] [place] VIRAL WARTS NOSSEBACEOUS CYST Apr-1 6-200 8 Priyanka Rivera. [address], [facility], [place], [place], [id number], [place]. tel:[phone] [employer] [facility], [address], [place], [place], [address], tel:[phone] [place] ACUTE BRONCHITIS 7 Yony Sanchez. [address], [facility] [address], [place], [place], [address], . tel:[phone] [facility], [address], [place], [place], [address], tel:[phone] [place] SCRN-ISCHEMIC HEART DISROUTINE MEDICAL EXAM 7 Priyanka Rivera. [address], [address], [place], [place], [address], [place]. tel:[phone] [facility], [address], [place], [place], [address], tel:[phone] [place] ACUTE SINUSITIS NOSAC LARYNGITIS W/O OBSTACUTE PHARYNGITIS 0 3 Meet Felton. [address], [facility] [address], [place], [place], [address]. tel:[phone] [facility], [address], [place], [place], [address], tel:[phone] [place] ACUTE URI NOS 2 Conversion Doctor. [address] [place] [address], [address], . Family History Family Member Type Diagnosis Age At Onset No Information Payers Payer name Insurance type Covered democrat ID Authoriza tion(s) No Information Social History [...]
--- OUTSIDE RECORDS SUMMARY | 2024-10-07 13:20 | XMS_ITS | Clinical Summary ---
Author Organization [facility] Address [address] [place] [address] Care Team Providers Care Machine I Trimmer Name Role Phone Emil Lewis DO Primary Care Provider Source Comments [facility],non-owned Affiliates and Associated Physician Practices is amultiple site organization consisting of ambulatory clinics and hospital sitesin [place], [place], [place] and [place]. This disclosure is being madepursuant to the Care Everywhere program and may not contain all information available regarding this patient. Last updated 17.[facility] [employer] Social History Tobacco Use Types Packs/Day Years Used Date Smoking Tobacco: Never Assessed Comments Unknown Sex and Gender Information Value Date Recorded Sex Assigned at Not on file Legal Sex Female 6:21 AM STACK ATTENDANT Gender Identity Not on file Sexual Orientation [...] season) 2023 DEPRESSION SCREENING 02/24/2024 INFLUENZA VACCINE (#1) 2024 Respiratory Syncytial Virus (RSV) Vaccine Pt: [...] patient's age to complete this topic [place] [place] [address] [address] [place] [address] [facility] Care Teams Machine I Trimmer Relationship Specialty Start Date End Date Emil Lewis DO PCP - General 01/03/21
== END 2024-10-07 13:17 | disposition home or self-care (01) ==
LOC: ANHIMG 13:17
PROVIDERS: PCP Internal Medicine; Visit Provider Surgery
DX: R92.8 Other abnormal and inconclusive findings on diagnostic imaging of breast (principal); Z85.3 Personal history of malignant neoplasm of breast
CPT/HCPCS: 77062; 77066; G0279